=== PATIENT | male | born 1960 | race Caucasian/White ===

== ENCOUNTER 2016-12-20 08:07 | Emergency (ER) | payer OTHER ==
[~2016-12-20] VITALS: Ht 175.3 cm; Wt 153.2 kg
[2016-12-20 08:10] VITALS: BP 180/101; PULSE 76; RESP 16; O2SAT 97
--- NOTE | 2016-12-20 08:29 | ED.REPORT ---
HPI-Extremity Problem Lower Date of Service December 20, 2016 ED Provider: Dr. Laurie Baker The patient is a 56 year old male w/ a hx of osteoarthritis and chronic pain who presents to the ED due to right knee pain onset yesterday. Yesterday, he was sitting in his office chair, he got up and his whole right leg and knee became stiff and "tight." This morning he feels as if the whole knee is "shifted " and every movement hurts. He received a cortisone shot a few months ago which helped his pain. 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 He sees Dr. Weaver and Manju Frances at [facility]. He has a lower left leg muscle injury. Nursing Notes Stated Complaint: RIGHT LEG/KNEE PAIN Chief Complaint: Extremity Trauma Nursing Notes Reviewed: Yes Allergies: Uncoded Allergies: ANTIBIOTIC (Allergy, Unknown, 12/20/16) Scheduled PRN Hydrocodone-Acetaminophen 5-300 mg (Hydrocodone-Acetaminophen 5-300 mg) 1 Each Tablet 1 TABLET PO Q4H PRN PRN For Pain General Time Seen by MD: 08:29 Chief Complaint Other (right knee pain) Hx Obtained From: Patient Arrived By: Walk-in Onset Occurred: Yesterday Symptom Duration: Since onset Caused by: Accidental Location: : Knee right Quality: Painful Severity: Current: Moderate Recent Healthcare: No recent doctor visit, No recent hospitalization Similar Sx Previous: Yes Past Medical History Past Medical History Reports: Hypertension Past Surgical History denies Smoking History Former Smoker Social History Other Social History: Good social support, , Local resident Ambulatory Status Independent Review of Systems Musculoskeletal: Reports: Joint pain (right knee), Joint swelling (right knee) Complete sys rev & neg: except as marked. Physical Exam Initial Vital Signs Vital Signs (First) Date Time Temp Pulse Resp B/P Pulse Ox O2 Delivery O2 Flow Rate FiO2 12/20/16 08:10 36.3 76 16 180/101 97 Room Air Head / Eyes: Atraumatic, Normocephalic ENT: Mucous membranes moist Respiratory: Breath sounds normal, Clear to auscultation Cardiovascular: Regular rate & rhythm, Heart sounds normal Abdomen / GI: Soft, Non-tender, No guarding, No rebound Upper Extremities: Vascular intact, Neuro intact, No swelling Skin: Warm, Dry Right Knee: Positive: Joint effusion present, Swelling present... ligamemts stable tenderness along medial and lateral line weight bearing no varus or valgus deformity he can bend to 60 degrees and extend to 70 degrees Ankle / Foot: Inspection NL Procedures Procedure Notes: Right knee intra-articular injection Indication; pain Verbal informed consent is obtained 40 mg of Kenalog and 1.5 mL of 0.5% bupivacaine without epi is injected into the right knee space. Anterior lateral approach was used. There were no complications. Patient did notice relief of pain shortly after anesthetic was injected knee immobilizer is placed for comfort and stability. Patient tolerated procedure well, no complications. Re-Eval/Medical Decision Re-Evaluation/Progress #1: Time of Eval: 09:23 Re-Evaluation/Progress Note: Pt rechecked. Informed pt of diagnosis and discussed treatment options. He will eventually need surgery. Pt requests cortisone shot. Re-Evaluation/Progress #2: Time of Eval: 10:31 Patient Status: Pain improved Re-Evaluation/Progress Note: Pt rechecked. Knee brace is in place. Pt receives cortisone shot. Counseled Regarding: Diagnosis, Lab results, Need for follow-up, When/why to return to ED Discharge & Departure Impression: Primary Impression: Internal derangement of knee Laterality: right Qualified Code: M23.91 - Unspecified internal derangement of right knee Disposition: Home Discharge Condition All VS Reviewed: Yes Condition: Stable Additional Instructions: Keep the knee brace on your leg 24/7. You can adjust it to make it more comfortable. Use the cane for further stability. You can take Ibuprofen and Vicodin together, they will last longer as a pair. This will give you better pain control fdc. At some point, you may need an MRI to see the knee more clearly.You may need to see an orthopedic surgeon. Schedule an appointment with him in the next week. Follow up with your primary care physician as needed. Return to the Emergency Department for any new or worsening symptoms. I hope the cortisone shot helps. Congratulations on your new job! Referrals: Primitivo Weaver MD (PCP) Scribe Attestation Portion of this note were transcribed by Mary Carbajal. I, Dr. Carmen Baker, personally performed the history, physical exam, and medical decision-making: I reviewed and confirmed the accuracy for the information in the transcribed note. Signed by: abraham Lucia, 12/20/16 1000 copies to: Primitivo Weaver MD, Shawna L MD December 20, 2016 08:29 Mayr Carbajal December 20, 2016 09:16 Mary Carbajal December 20, 2016 09:16
[2016-12-20 08:58] VITALS: BP 156/96
[2016-12-20] MEDS ORDERED: Bupivacaine 0.5% 50 mL Inj INFILTRATE ONE (09:45)
[2016-12-20] MEDS ORDERED: Triamcinolone Acet 40 mg/mL 5 mL Inj INTRARTICU ONE (09:45)
[2016-12-20] MEDS ORDERED: HYDR-3090 PO (10:19)
[2016-12-20 11:17] VITALS: BP 140/88; PULSE 72; RESP 18; O2SAT 98
== END 2016-12-20 11:18 | disposition home or self-care (01) ==
LOC: SED 08:07
DX: M23.8X1 Other internal derangements of right knee (principal); I10 Essential (primary) hypertension; Z87.891 Personal history of nicotine dependence